=== PATIENT | female | born 2000 | race Caucasian/White ===

== ENCOUNTER 2023-10-25 17:50 | Emergency (ER) | payer BC ==
[~2023-10-25] VITALS: Ht 172.7 cm; Wt 59.0 kg
[2023-10-25 17:53] VITALS: BP 136/82; PULSE 78; RESP 16; TEMP 99; O2SAT 99
== END 2023-10-25 23:39 | disposition left against medical advice (07) ==
LOC: ER 17:50
DX: R06.81 Apnea, not elsewhere classified (principal); Z53.21 Procedure and treatment not carried out due to patient leaving prior to being seen by health care provider
CPT/HCPCS: 99281